=== PATIENT | male | born 1950 | race Caucasian/White ===

== ENCOUNTER 2020-04-05 11:06 | Outpatient (REF) | payer MEDICARE, SELFPAY ==
[2020-04-08 12:53] LABS: Free Prostate Spec Ag 0.8 ng/mL; Percent Free Prostate Spec Ag 19 % (calc) (>25); Prostate Specific Ag Total 4.2 ng/mL (< OR = 4.0)
== END 2020-04-05 11:07 | disposition home or self-care (01) ==
LOC: HO.LAB 11:06
PROVIDERS: PCP Family Medicine; Visit Provider Urology
DX: N40.1 Benign prostatic hyperplasia with lower urinary tract symptoms (principal); Z12.5 Encounter for screening for malignant neoplasm of prostate
CPT/HCPCS: 36415; 84153; 84154

== ENCOUNTER → 2020-04-17 14:24 | Outpatient (BNVA) | payer MEDICARE, SELFPAY | PROVIDERS: PCP Family Medicine; Visit Provider Urology | DX: R97.20 Elevated prostate specific antigen [PSA] (principal); N40.1 Benign prostatic hyperplasia with lower urinary tract symptoms; R35.1 Nocturia; R39.12 Poor urinary stream | CPT/HCPCS: Q3014 ==

== ENCOUNTER → 2020-11-01 14:42 | Outpatient (BNVA) | payer MEDICARE, SELFPAY | PROVIDERS: PCP Family Medicine; Visit Provider Urology | DX: R97.20 Elevated prostate specific antigen [PSA] (principal); N40.1 Benign prostatic hyperplasia with lower urinary tract symptoms; N13.8 Other obstructive and reflux uropathy | CPT/HCPCS: Q3014 ==

== ENCOUNTER → 2021-05-08 08:26 | Outpatient (BNVA) | payer MEDICARE, SELFPAY | PROVIDERS: PCP Family Medicine; Visit Provider Urology | DX: R97.20 Elevated prostate specific antigen [PSA] (principal); N40.1 Benign prostatic hyperplasia with lower urinary tract symptoms; N13.8 Other obstructive and reflux uropathy | CPT/HCPCS: Q3014 ==

== ENCOUNTER 2021-11-04 11:45 | Outpatient (REF) | payer MEDICARE, SELFPAY ==
[2021-11-04 13:00] LABS: Prostate Specific Antigen 1.15 ng/mL (<0.05-4.0)
== END 2021-11-04 11:46 | disposition home or self-care (01) ==
LOC: HO.LAB 11:45
PROVIDERS: PCP Family Medicine; Visit Provider Urology
DX: Z12.5 Encounter for screening for malignant neoplasm of prostate (principal); R97.20 Elevated prostate specific antigen [PSA]
CPT/HCPCS: 36415; 84153

== ENCOUNTER → 2021-11-12 08:38 | Outpatient (BNVA) | payer MEDICARE, SELFPAY | PROVIDERS: PCP Family Medicine; Visit Provider Urology | DX: N40.1 Benign prostatic hyperplasia with lower urinary tract symptoms (principal); R33.8 Other retention of urine; E11.69 Type 2 diabetes mellitus with other specified complication; N52.1 Erectile dysfunction due to diseases classified elsewhere; N52.01 Erectile dysfunction due to arterial insufficiency; R97.20 Elevated prostate specific antigen [PSA] | CPT/HCPCS: 51798; 99212 ==

== ENCOUNTER → 2022-02-12 13:19 | Outpatient (BNVA) | payer MEDICARE, SELFPAY | PROVIDERS: PCP Family Medicine; Visit Provider Urology | DX: N40.1 Benign prostatic hyperplasia with lower urinary tract symptoms (principal); E11.69 Type 2 diabetes mellitus with other specified complication; N52.1 Erectile dysfunction due to diseases classified elsewhere; R97.20 Elevated prostate specific antigen [PSA] | CPT/HCPCS: Q3014 ==

== ENCOUNTER 2022-10-23 07:38 | Outpatient (REF) | payer MEDICARE, SELFPAY ==
[2022-10-23 14:46] LABS: Prostate Specific Antigen 1.74 ng/mL (<0.05-4.0)
== END 2022-10-23 07:39 | disposition home or self-care (01) ==
LOC: HO.LAB 07:38
PROVIDERS: PCP Family Medicine; Visit Provider Urology
DX: Z12.5 Encounter for screening for malignant neoplasm of prostate (principal); N40.1 Benign prostatic hyperplasia with lower urinary tract symptoms
CPT/HCPCS: 36415; 84153

== ENCOUNTER 2022-10-28 15:21 | Outpatient (AMB) | payer MEDICARE, SELFPAY ==
--- NOTE | 2022-10-28 15:48 | A.OFFVIS_ITS ---
Intake Intake Visit Reasons: 6M PSA(SET) Intake Note: Patient is present for Follow Up PSA Urology Med: Finasteride, Tadalafil Antibiotic Allergy: Penicillins Blood Thinner: None [facility] Allerg[facility] Penicillins Allergy (Mild, Verified 02/12/22 13:20) RASH,HIVES Medication List - Last Reconciled 10/28/22 by Rodger Redman MD amlodipine 2.5 mg PO DAILY blood sugar diagnostic (Intec PharmaTouch Ultra Test strips) As directed blood-glucose meter As directed dulaglutide (Trulicity) mg subcut QWEEK dulaglutide (Trulicity) mg subcut finasteride 5 mg PO DAILY 90 days glipizide ER 5 mg PO DAILY insulin glargine units subcut lancets (Intec PharmaTouch UltraSoft Lancets) As directed omeprazole 20 mg PO DAILY pantoprazole 40 mg PO BID pen needle, diabetic (BD Brandie 2nd Gen Pen Needle) As directed tadalafil 20 mg PO ONCE PRN 30 days HPI HPI Comments History of Present Illness Details Jeromy DIETZ is a very pleasant male. He is a patient of Dr Ybarra. He is seen for the following urologic conditions. - lower urinary tract symptoms - large prostate - erectile dysfunction Every other day finasteride PSA 1.7 Effective voiding Nocturia x1 On demand tadalafil 20 mg Refill provided 6 month follow-up Erectile dysfunction Associated diabetes type 2 Minimal activity Good success with 20 mg on demand Lower Urinary Tract Symptoms: Here for PSA review Current visit is for further evaluation of, lower urinary tract symptoms, predominate obstructive symptoms - better emptying after procedure Current treatment includes TURP July 2017 Prior treatments include 07/30 , procedure, TURP, laser procedure 04/02 , OAB. Prostate Symptom Score 05/02 , Severe (20+), Bother 4 04/02 , Mild (0-8), Bother 2. Symptoms include 05/02 , incomplete emptying, urgency, weak stream, nocturia (>2), straining, and are progressing 04/02 , incomplete emptying, weak stream, and are stable. Results from testing include renal/bladder us Yes date 05/27/2017 PVR 67 prostate size 65 Prior Prostate Score mild. PSA 05/02 3.8 03/02 3.3, 03/03 4.2 - 03/04 1.7 on finasteride, 11/03 1.2, 8/23 1.7 Prostate volume 50+gm. Associated conditions CAD No CVA No diabetes Yes elevated PSA No erectile dysfunction yes Testing at next visit will include bladder scan. Treatment plan - PVR surveillance REPLACED BY [facility] Medical History Benign prostatic hyperplasia with lower urinary tract symptoms Diabetes type 2, uncontrolled Dysuria Elevated PSA History of tobacco use Hyperlipidemia Nocturia Weak urinary stream Surgical History History of knee surgery History of prostate surgery Family History Father Empyema Mother Alzheimer disease Social History Household Members: Spouse Alcohol intake: never Current occupational status: retired Review of Systems Const Denies chills and Denies fever(s) Card Reports no additional complaints and Denies syncope Resp Denies cough GI Denies abdominal pain and Denies heartburn Reports as per HPI and Denies change in libido Neuro Denies syncope Psych Denies change in libido Endo Denies change in libido Physical Exam Const General: cooperative, healthy appearing, comfortable and no acute distress Orientation/consciousness: patient oriented x3 HEENT Face and sinus: Yes normal facial exam Mouth: moist mucous membranes Neck Neck: Yes normal visual inspection, Yes full ROM and Yes trachea midline Chest Chest palpation & inspection: normal inspection of the chest Resp Effort & Inspection: normal respiratory effort, able to speak in complete sentences and no respiratory distress GI Inspection: Yes normal to inspection Back/Spine/Pelvis Cervical Spine: normal cervical lordosis Thoracic/Lumbar Spine: thoracic and lumbar spine normal to inspection Skin General skin exam: no rashes or lesions noted Neuro General: patient oriented x3, gait normal, tone normal and moves all extremities Extrem General: Yes normal to inspection and Yes capillary refill normal Assessment & Plan Assessment & Plan (1) Erectile dysfunction associated with type 2 diabetes mellitus: Code(s): E11.69 - Type 2 diabetes mellitus with other specified complication; N52.1 - Erectile dysfunction due to diseases classified elsewhere (2) Benign prostatic hyperplasia with lower urinary tract symptoms: Code(s): N40.1 - Benign prostatic hyperplasia with lower urinary tract symptoms Plan Six month follow-up Medications: Refilled tadalafil On demand medication take 60 minutes before intended activity 20 mg PO ONCE PRN 30 tabs 1RF sexual activity 30 days E11.69 - Type 2 diabetes mellitus with other specified complication, N52.1 - Erectile dysfunction due to diseases classified elsewhere Patient Instructions: Imaging studies, laboratory and physical exam results were discussed and reviewed in detail. No major barriers to patient understanding were identified. An opportunity to ask questions regarding the treatment plan was provided. All questions were answered. The patient expressed understanding and agreement with the above treatment plan. The patient is aware they should contact our office by phone for worsening of their current condition or the appearance of new urologic symptoms. Compliance is encouraged with any medications and followup testing that is ordered. It is a privilege to participate in the urologic care of your patient. If you have any questions or concerns regarding treatment for the above conditions, or other urologic issues, please do not hesitate to contact me. The office telephone contact is [phone]. This note is constructed using voice recognition software. While every effort has been made to ensure accuracy nutritional services director errors may have been included. Yours sincerely, Dr Rodger Redman MD, [facility] - Urology Providers of Expert, Compassionate Care for the Genitourinary System Coding Level of Care Code Est Pt Level 3 (68836) Diagnoses Erectile dysfunction associated with type 2 diabetes mellitus E11.69; N52.1 Benign prostatic hyperplasia with lower urinary tract symptoms N40.1
== END 2022-10-28 16:16 | disposition home or self-care (01) ==
PROVIDERS: PCP Family Medicine; Visit Provider Urology
DX: E11.69 Type 2 diabetes mellitus with other specified complication (principal); N52.1 Erectile dysfunction due to diseases classified elsewhere; N40.1 Benign prostatic hyperplasia with lower urinary tract symptoms
CPT/HCPCS: 99213

== ENCOUNTER → 2022-10-28 15:21 | Outpatient (BNVA) | payer MEDICARE, SELFPAY | PROVIDERS: Visit Provider Urology | DX: E11.69 Type 2 diabetes mellitus with other specified complication (principal); N52.1 Erectile dysfunction due to diseases classified elsewhere; N40.0 Benign prostatic hyperplasia without lower urinary tract symptoms | CPT/HCPCS: 99212 ==

== ENCOUNTER 2023-06-15 15:30 | Outpatient (AMB) | payer MEDICARE, SELFPAY ==
--- NOTE | 2023-06-15 15:32 | MHC.OFFVIS ---
Intake Intake Visit Reasons: 6m follow up Allergies Penicillins Allergy (Mild, Verified 02/12/22 13:20) RASH,HIVES HPI HPI Comments History of Present Illness Details Jeromy DIETZ is a very pleasant male. He is a patient of Dr Ybarra. He is seen for the following urologic conditions. - lower urinary tract symptoms - large prostate - erectile dysfunction Telemedicine Evaluation 15 min Consultation [facility] Video attempted Six-month follow-up Every other day finasteride PSA 1.7 Effective voiding Nocturia x1 On demand tadalafil 20 mg effective Twelve month follow-up PSA Erectile dysfunction Associated diabetes type 2 Minimal activity Good success with 20 mg on demand Lower Urinary Tract Symptoms: Here for PSA review Current visit is for further evaluation of, lower urinary tract symptoms, predominate obstructive symptoms - better emptying after procedure Current treatment includes TURP July 2017 Prior treatments include 07/30 , procedure, TURP, laser procedure 04/02 , OAB. Prostate Symptom Score 05/02 , Severe (20+), Bother 4 04/02 , Mild (0-8), Bother 2. Symptoms include 05/02 , incomplete emptying, urgency, weak stream, nocturia (>2), straining, and are progressing 04/02 , incomplete emptying, weak stream, and are stable. Results from testing include renal/bladder us Yes date 05/27/2017 PVR 67 prostate size 65 Prior Prostate Score mild. PSA 05/02 3.8 03/02 3.3, 03/03 4.2 - 03/04 1.7 on finasteride, 11/03 1.2, 11/04 1.7 Prostate volume 50+gm. erectile dysfunction yes Testing at next visit will include bladder scan. Treatment plan - PVR surveillance [facility] Medical History Benign prostatic hyperplasia with lower urinary tract symptoms Diabetes type 2, uncontrolled Dysuria Elevated PSA History of tobacco use Hyperlipidemia Nocturia Weak urinary stream Surgical History History of knee surgery History of prostate surgery Family History Father Empyema Mother Alzheimer disease Social History Household Members: Spouse Alcohol intake: never Current occupational status: retired Review of Systems Const All systems reviewed & are unremarkable except as noted in HPI and below Reports no additional complaints Resp Reports no additional complaints GI Reports no additional complaints Reports as per HPI Musc Reports no additional complaints Physical Exam Telemedicine evaluation Appropriate responses Regular breathing rate and rhythm HEENT Head: Yes normal to inspection Ears: hearing grossly normal bilaterally Eyes General: appearance normal, both eyes and all related structures Neck Neck: Yes normal visual inspection Chest Chest palpation & inspection: normal inspection of the chest Resp Effort & Inspection: normal respiratory effort and able to speak in complete sentences Assessment & Plan Assessment & Plan (1) Erectile dysfunction associated with type 2 diabetes mellitus: Code(s): E11.69 - Type 2 diabetes mellitus with other specified complication; N52.1 - Erectile dysfunction due to diseases classified elsewhere (2) Benign prostatic hyperplasia with lower urinary tract symptoms: Code(s): N40.1 - Benign prostatic hyperplasia with lower urinary tract symptoms Plan Six-month follow-up PSA Orders: Orders Prostate Specific Antigen 364 Days N40.1 - Benign prostatic hyperplasia with lower urinary tract symptoms Patient Instructions: Imaging studies, laboratory and physical exam results were discussed and reviewed in detail. No major barriers to patient understanding were identified. An opportunity to ask questions regarding the treatment plan was provided. All questions were answered. The patient expressed understanding and agreement with the above treatment plan. The patient is aware they should contact our office by phone for worsening of their current condition or the appearance of new urologic symptoms. Compliance is encouraged with any medications and followup testing that is ordered. It is a privilege to participate in the urologic care of your patient. If you have any questions or concerns regarding treatment for the above conditions, or other urologic issues, please do not hesitate to contact me. The office telephone contact is [phone]. This note is constructed using voice recognition software. While every effort has been made to ensure accuracy professional soccer player errors may have been included. Yours sincerely, Dr Rodger Redman MD, [facility] - Urology Providers of Expert, Compassionate Care for the Genitourinary System Telehealth Telehealth Location of provider rendering services: practice address Location of patient: address on file Patient Identification confirmed using: Name, : Yes Telehealth method: video Patient verbally consented to treatment: Yes Patient verbally consented to billing insurance company: Yes Patient informed of any privacy concerns related to visit: Yes Coding Level of Care Code Tele Est Pt Level 3 (45942) Diagnoses Erectile dysfunction associated with type 2 diabetes mellitus E11.69; N52.1 Benign prostatic hyperplasia with lower urinary tract symptoms N40.1
== END 2023-06-15 16:19 | disposition home or self-care (01) ==
LOC: HO.HUSH 15:30
PROVIDERS: PCP Family Medicine; Visit Provider Urology
DX: E11.69 Type 2 diabetes mellitus with other specified complication (principal); N52.1 Erectile dysfunction due to diseases classified elsewhere; N40.1 Benign prostatic hyperplasia with lower urinary tract symptoms
CPT/HCPCS: 99213

== ENCOUNTER → 2023-06-15 15:30 | Outpatient (BNVA) | payer MEDICARE, SELFPAY | PROVIDERS: PCP Family Medicine; Visit Provider Urology ==

== ENCOUNTER 2024-06-05 12:47 | Outpatient (REF) | payer MEDICARE, SELFPAY ==
[2024-06-05 15:25] LABS: Prostate Specific Antigen 1.33 ng/mL (<0.05-4.0)
== END 2024-06-05 12:48 | disposition home or self-care (01) ==
LOC: HO.LAB 12:47
PROVIDERS: PCP Family Medicine; Visit Provider Urology
DX: N40.1 Benign prostatic hyperplasia with lower urinary tract symptoms (principal); Z12.5 Encounter for screening for malignant neoplasm of prostate
CPT/HCPCS: 36415; 84153

== ENCOUNTER 2024-06-13 15:24 | Outpatient (AMB) | payer MEDICARE, SELFPAY ==
--- NOTE | 2024-06-13 15:40 | A.OFFVIS_ITS ---
Intake Visit Reasons: 1y/PSA(PSA?) Intake Note: Patient is present for 1Y Follow Up PSA Urology Med: Finasteride, Tadalafil Antibiotic Allergy: Penicillins Blood Thinner: None Jack Machine Operator Required: No Allergies Penicillins Allergy (Mild, Verified 06/13/24 15:41) RASH,HIVES HPI Comments Details: Jeromy DIETZ is a very pleasant male. He is a patient of Dr Ybarra. He is seen for the following urologic conditions. - lower urinary tract symptoms - large prostate - erectile dysfunction Twelve month follow-up PSA 1.3 Finasteride Wednesday, Wednesday, Wednesday Effective voiding Nocturia x1 On demand tadalafil 20 mg effective Follow next year Erectile dysfunction Associated diabetes type 2 Minimal activity Good success with 20 mg on demand Lower Urinary Tract Symptoms: Here for PSA review Current visit is for further evaluation of, lower urinary tract symptoms, predominate obstructive symptoms - better emptying after procedure Current treatment includes TURP July 2017 Prior treatments include 07/30 , procedure, TURP, laser procedure 04/02 , OAB. Prostate Symptom Score 05/02 , Severe (20+), Bother 4 04/02 , Mild (0-8), Bother 2. Symptoms include 05/02 , incomplete emptying, urgency, weak stream, nocturia (>2), straining, and are progressing 04/02 , incomplete emptying, weak stream, and are stable. Results from testing include renal/bladder us Yes date 05/27/2017 PVR 67 prostate size 65 Prior Prostate Score mild. PSA 05/02 3.8 03/02 3.3, 03/03 4.2 - 03/04 1.7 on finasteride, 11/03 1.2, 11/04 1.7, 07/07 1.3 Prostate volume 50+gm. erectile dysfunction yes Testing at next visit will include bladder scan. Treatment plan - PVR surveillance [facility] Medical History Benign prostatic hyperplasia with lower urinary tract symptoms Diabetes type 2, uncontrolled Dysuria Elevated PSA History of tobacco use Hyperlipidemia Nocturia Weak urinary stream Surgical History History of knee surgery History of prostate surgery Family History Father Empyema Mother Alzheimer disease Social History Household Members: Spouse Alcohol intake: never Current occupational status: retired Review of Systems Const Denies chills and Denies fever(s) Card Reports no additional complaints and Denies syncope Resp Denies cough GI Denies abdominal pain and Denies heartburn Reports as per HPI and Denies change in libido Neuro Denies syncope Psych Denies change in libido Endo Denies change in libido Physical Exam Const General: cooperative, healthy appearing, comfortable and no acute distress Orientation/consciousness: patient oriented x3 HEENT Face and sinus: Yes normal facial exam Mouth: moist mucous membranes Neck Neck: Yes normal visual inspection, Yes full ROM and Yes trachea midline Chest Chest palpation & inspection: normal inspection of the chest Resp Effort & Inspection: normal respiratory effort, able to speak in complete sentences and no respiratory distress GI Inspection: Yes normal to inspection Back/Spine/Pelvis Cervical Spine: normal cervical lordosis Thoracic/Lumbar Spine: thoracic and lumbar spine normal to inspection Skin General skin exam: no rashes or lesions noted Neuro General: patient oriented x3, gait normal, tone normal and moves all extremities Extrem General: Yes normal to inspection and Yes capillary refill normal Assessment & Plan Assessment & Plan (1) Benign prostatic hyperplasia with lower urinary tract symptoms: Code(s): N40.1 - Benign prostatic hyperplasia with lower urinary tract symptoms Category: Medical (2) Elevated PSA: Code(s): R97.20 - Elevated prostate specific antigen [PSA] Category: Medical (3) Erectile dysfunction associated with type 2 diabetes mellitus: Code(s): E11.69 - Type 2 diabetes mellitus with other specified complication; N52.1 - Erectile dysfunction due to diseases classified elsewhere Category: Medical Plan 12 month follow-up PSA Orders: Orders Prostate Specific Antigen 364 Days R97.20 - Elevated prostate specific antigen [PSA] Patient Instructions: This note is constructed using voice recognition software. While every effort has been made to ensure accuracy gameroom technician errors may have been included. Imaging studies, laboratory and physical exam results were discussed and reviewed in detail. No major barriers to patient understanding were identified. An opportunity to ask questions regarding the treatment plan was provided. All questions were answered. The patient expressed understanding and agreement with the above treatment plan. The patient is aware they should contact our office by phone for worsening of their current condition or the appearance of new urologic symptoms. Compliance is encouraged with any medications and followup testing that is ordered. It is a privilege to participate in the urologic care of your patient. If you have any questions or concerns regarding treatment for the above conditions, or other urologic issues, please do not hesitate to contact me. The office telephone contact is [phone]. Sincerely, Dr Rodger Redman MD, [facility] - Urology Compassionate Specialist Care for the Genitourinary System Coding Level of Care Code Est Pt Level 4 (63217) Complex EM visit Add On G2211 Diagnoses Benign prostatic hyperplasia with lower urinary tract symptoms N40.1 Elevated PSA R97.20 Erectile dysfunction associated with type 2 diabetes mellitus E11.69; N52.1
--- OUTSIDE RECORDS SUMMARY | 2024-06-13 18:17 | XMS_ITS | Clinical Summary ---
Author Organization [address] [facility] Address [address] [place] [address] Phone Care Team Providers Care Bow Maker Gift Wrapping Name Role Phone Jay Ybarra DO Primary Care Provider [phone] Allergies Active Allergy Reactions Criticality Noted Date Comments Penicillins 03/25/2021 Other Reaction(s): Rash/Dermatitis Medications dulaglutide (Trulicity) 0.75 mg/0.5 mL pen injector injection Inject 0.75 mg into the skin once a week. 4 Active rosuvastatin (CRESTOR) 10 mg tablet 9 Active medical supply, miscellaneous (MISCELLANEOUS MEDICAL SUPPLY MISC) glucose blood test strips (ASCENSIA AUTODISC ,ONE TOUCH ULTRA TEST ) strip ONE TOUCH ULTRASOFT LANCETS, See Instructions, # 200 Unknown, 5 Refills, Maintenance, TEST 1 TO 3 TIMES A DAY FOR TYPE 2 DIABETES MELLITUS, 04/30/22 9:59:00 EST, 170, cm, 03/26/22 15:15:00 EST, Height, 63.8, kg, 03/02/22 19:54:00 EST, Dry Weight 9 Active glipiZIDE (GLUCOTROL) 5 mg tablet TAKE 1/2 TABLET BEFORE DINNER. 4 Active pantoprazole (PROTONIX) 40 mg EC tablet Take 1 Tablet by mouth. 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 Mai next 11/2019 Benign essential hypertension 03/26/2021 Chronic obstructive pulmonary disease 03/26/2021 Diabetes mellitus 03/26/2021 Disorder of rotator cuff 03/26/2021 Heartburn 03/26/2021 Hyperlipidemia 03/26/2021 Hypertension 03/26/2021 Traumatic complete tear of left rotator cuff Encounters Date Type Department Care Team Description 04/05/2024 3:00 PM EST Office Visit Orthopedic Surgery - [address] [address] Rosaura Patel NP Primary osteoarthritis of right knee (Primary Dx); Primary osteoarthritis of left knee from Last 3 Months Surgical History Surgery Date Site/Laterality Comments HERNIA REPAIR PROCEDURE: HISTORICAL HERNIA REPAIR/UMB KNEE ARTHROSCOPY Bilateral PROCEDURE: ME ARTHROSCOPY AID TX SPINE&/FX KNEE W/O FIXJ; COMMENT: Patellar repair FOOT SURGERY Bilateral PROCEDURE: HISTORICAL FOOT SURGERY; COMMENT: Hammertoe repairs OTHER SURGICAL HISTORY 07/01/2021 Left PROCEDURE: ME RPR 1ST INGUN HRNA AGE 5 YRS/> REDUCIBLE; COMMENT: open LIH repair with prolene hernia system mesh (large) - Nathaly Thurman Medical History Medical History Date Comments Type 2 diabetes mellitus DX:Type 2 diabetes mellitus (HCC) Lumbar radiculopathy DX:Lumbar r adiculopathy Benign essential hypertension DX :Benign essential hypertension Essential (primary) hypertension DX:Essential (primary) hypertension COPD (chronic obstructive pu lmonary disease) (CMS/HCC) DX:COPD (chronic obstructive pulmonary disease) (HCC) Signleton's esophagus DX:Singleton's esophagus HLD (hyperlipidemia) DX:HLD (hyp erlipidemia) Carpal tunnel syndrome DX:Carpal tunnel syndrome Social History Tobacco Use Types Packs/Day Years Used Date Smoking Tobacco: Former Smokeless Tobacco: Never Alcohol Use Standard Drinks/Week Comments Never 0 (1 standard drink = 0.6 oz pur e alcohol) Sex and Gender Information Value Date Recorded Sex Assigned at Not on file Legal Sex Male 3:04 PM EST Gender Identity Not on file Sexual Orientation Not on file Obstetrics History Last Filed Vital Signs Vital Sign Reading Time Taken Comments Blood Pressure 118/60 12/13/2023 4:35 PM EDT C Pulse 52 12/13/2023 4:35 PM EDT Temperature - - Respiratory Rate - - Oxygen Saturation - - Inhaled Oxygen Concentration - - Weight 66.4 kg (146 lb 6.4 oz) 04/05/2024 2:59 P M EST Height 170.2 cm (5' 7 ) 04/05/2024 2:59 PM EST Body Mass Index 22.93 04/05/2024 2:59 PM EST Plan of Treatment Health Maintenance Due Date Last Done Comments Diabetes: Annual Foot Exam 1960 Abdominal Aortic Aneurysm (AAA) Screen 02/11/2022 Cholesterol Screening (Lipid Panel) 02/11/2022 Colorectal Cancer Screening: Colonoscopy 02/11/2022 Depression Screening 02/11/2022 Falls Risk Assessment 02/11/2022 Hepatitis C Screening 02/11/2022 Social Influencers of Health Screening 02/11/2022 Diabetes: Annual Urine Albumin-Creatinine Ratio (uACR) 12/11/2023 12/10/2022 Diabetes: Blood Sugar Control Test (HGBA1C) 02/12/2024 08/12/2023 Diabetes: Annual Retina Eye Exam 07/14/2024 07/15/2023 Diabetes: Annual GFR (Glomerular Filtration Rate) 08/11/2024 08/12/2023, 08/12/2023 Hypertension/CHF/CAD Annual BMP Blood Test 08/11/2024 08/12/2023, 08/12/2023 DTaP,Tdap,and Td Vaccines (2 - Td or Tdap) 06/21/2030 06/21/2020 Zoster Vaccines Completed 03/03/2022, 12/29/2021 Pneumococcal Vaccine: 50+ Years Completed 12/03/2022, 11/19/2017, 12/17/2016 COVID-19 Vaccine Completed 11/11/2023, , 12/12/2021, Additional history exists RSV Immunization Patients 60+ Years Old Completed 11/11/2023 Influenza Vaccine Completed 11/27/2023, , 12/12/2021, Additional history exists HIB Vaccines Aged Out No longer eligi ble based on patient's age to complete this topic HPV Vaccines Aged Out No longer eligi ble based on patient's age to complete this topic Hepatitis A Vaccines Aged Out No long er eligible based on patient's age to complete this topic Hepatitis B Vaccines Aged Out No long er eligible based on patient's age to complete this topic IPV Vaccines Aged Out No longer eligi ble based on patient's age to complete this topic MMR Vaccines Aged Out No longer eligi ble based on patient's age to complete this topic Meningococcal ACWY Vaccine Aged Out N o longer eligible based on patient's age to complete this topic Meningococcal B Vacine Aged Out No lo nger eligible based on patient's age to complete this topic RSV Immunization Patients Under 20 months Aged Out No longer eligible based on patient's age to complete this topic Varicella Vaccines Aged Out No longer eligible based on patient's age to complete this topic Procedures Procedure Name Priority Date/Time Associated Diagnosis Comments ANNUAL BMP BLOOD TEST Routine 08/12/2023 DIABETES EYE EXAM Routine 07/15/2023 URINE ALBUMIN CREATININE RATIO Routine 12/10/2022 from Last 3 Months or Most Recently Relevant to Health Maintenance Results * Annual BMP Blood Test (08/12/2023) Pathologist [facility] Annual BMP Blood Test abstracted [facility] Provider HEALTH MAINTENANCE Final Result * Diabetes Eye Exam (07/15/2023) [facility] Diabetes: Annual Retina Eye Exam abstracted [facility] Provider HEALTH MAINTENANCE Final Result * Urine Albumin Creatinine Ratio (12/10/2022) [facility] Urine Albumin Creatinine Ratio abstracted [facility] Provider HEALTH MAINTENANCE Final Result from Last 3 Months or Most Recently Relevant to Health Maintenance Insurance [facility] Care Teams Bow Maker Gift Wrapping Relationship Specialty Start Date End Date Jay Ybarra DO [address], [place] PCP - General Family Medicine 07/08/18
--- OUTSIDE RECORDS SUMMARY | 2024-06-13 18:17 | XMS_ITS | Clinical Summary ---
Author Organization [facility] Address [address] [place] [id number] Care Team Providers Care Mechanical Assembly Name Role Phone Jay Ybarra MD Primary Care Provider [phone] Allergies No known active allergies Medications Medication Sig Dispensed Refills Start Date End Date Status glipiZIDE (GLUCOTROL XL) ER 24 hr tablet 2.5 mg TAKE 1 TABLET BY MOUTH EVERY DAY IN THE MORNING DIRECTED 3 06/24/2018 Active lisinopril (PRINIVIL,ZESTRIL) tablet 10 mg Take 10 mg by mouth daily. 0 07/01/2018 Active metFORMIN (GLUCOPHAGE-XR) 750 MG 24 hr tablet Take 750 mg by mouth every night at bedtime. 3 05/25/2018 Active omeprazole (PriLOSEC) 20 MG capsule Take 20 mg by mouth daily. 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 Social History Tobacco Use Types Packs/Day Years Used Date Smoking Tobacco: Never Assessed Sex and Gender Information Value Date Recorded Sex Assigned at Not on file Gender Identity Not on file Sexual Orientation Not on file Job Start Date Occupation Industry Not on file Not on file Not on file Last Filed Vital Signs Vital Sign Reading Time Taken Comments Blood Pressure - - Pulse - - Temperature - - Respiratory Rate - - Oxygen Saturation - - Inhaled Oxygen Concentration - - Weight 74.4 kg (164 lb) 09/05/2018 2:21 PM EDT Height 170.2 cm (5' 7 ) 09/05/2018 2:21 PM EDT Body Mass Index 25.69 09/05/2018 2:21 PM EDT Plan of Treatment Health Maintenance Due Date Last Done Comments Hepatitis C Screening 1950 COVID-19 Vaccine (#1) 05/21/1951 Depression Screening 1962 Preventative Health Evaluation 1968 DTap / Tdap / Td (1 - Tdap) 1969 Colon Cancer Screening (Colonoscopy) 11/21/1995 Shingrix-Zoster Vaccine (1 of 2) 2000 Fall Risk Assessment 11/21/2015 Pneumococcal Vaccine (1 of 1 - PCV) 11/21/2015 Influenza Vaccine (#1) 2023 RSV Adult > 60+ Yrs or Pregn ant (1 - 1-dose 75+ series) 2025 Hepatitis B Vaccines Aged Out No long er eligible based on patient's age to complete this topic RSV Ped < 20 months Aged Out No longe r eligible based on patient's age to complete this topic Care Teams Mechanical Assembly Relationship Specialty Start Date End Date Jay Ybarra MD [address] [place] [id number] PCP - General Family Medicine 07/11/18
== END 2024-06-13 16:15 | disposition home or self-care (01) ==
LOC: HO.HUSH 15:24
PROVIDERS: PCP Family Medicine; Visit Provider Urology
DX: N40.1 Benign prostatic hyperplasia with lower urinary tract symptoms (principal); R97.20 Elevated prostate specific antigen [PSA]; E11.69 Type 2 diabetes mellitus with other specified complication; N52.1 Erectile dysfunction due to diseases classified elsewhere
CPT/HCPCS: 99499